=== PATIENT | female | born 1975 | race Caucasian/White ===

== ENCOUNTER 2020-09-15 08:10 | Outpatient (CLI) | payer OTHER, SELFPAY ==
[2020-09-15 08:56] LABS: Hemoglobin A1C 5.6 % (<5.7)
[2020-09-15 09:48] LABS: Alanine Aminotransferase 27 U/L (14-59); Albumin Level 3.7 g/dL (3.4-5.0); Alkaline Phosphatase 61 U/L (46-116); Anion Gap 10 mmol/L (8-16); Aspartate Amino Transferase 12 U/L (15-37); Bilirubin,Total 0.4 mg/dL (0.00-1.00); Blood Urea Nitrogen 10 mg/dL (7-18); Carbon Dioxide 27 mmol/L (21-32); Chloride 104 mmol/L (98-108); Estimated Glomerular Filt Rate > 60; Free T4 Free Thyroxine 0.85 ng/dL (0.76-1.46); Glucose 107 mg/dL (70-99); Osmolality Calculated 291 mOsm/kg (285-295); Potassium 3.8 mmol/L (3.5-5.1); Sodium 141 mmol/L (136-145); Vitamin B12 340 pg/mL (193-986)
[2020-09-15 10:08] LABS: Thyroid Stimulating Hormone 1.48 uIU/mL (0.36-3.74)
[2020-09-18 20:41] LABS: Vitamin D 25 Hydroxy 21 ng/mL (30-100)
== END 2020-09-15 08:11 | disposition home or self-care (01) ==
LOC: CHSLAB 08:13
PROVIDERS: PCP Nurse Practitioner Family; Visit Provider Nurse Practitioner Family
DX: F32.9 Major depressive disorder, single episode, unspecified (principal); F41.9 Anxiety disorder, unspecified; E03.9 Hypothyroidism, unspecified; R73.03 Prediabetes
CPT/HCPCS: 36415; 80053; 82306; 82607; 83036; 84439; 84443

== ENCOUNTER 2021-05-27 16:21 | Outpatient (CLI) | payer OTHER, SELFPAY ==
[2021-05-27 16:31] LABS: Basophils Absolute Auto 0.05 K/mm3 (0.00-0.10); Basophils Percent Auto 0.5 % (0.0-1.0); Eosinophils Absolute Auto 0.29 K/mm3 (0.02-0.50); Hematocrit 44.9 % (35.0-49.0); Hemoglobin 14.3 g/dL (12.0-15.0); Immature Granulocyte Absolute 0.04 K/mm3 (0.00-0.00); Immature Granulocyte Percent A 0.4 % (0.0-0.0); Lymphocytes Absolute Auto 1.98 K/mm3 (1.10-4.50); Lymphocytes Percent Auto 20.4 % (18.0-42.0); Mean Corpuscular HGB Conc 31.8 g/dL (32.0-36.0); Mean Corpuscular Hemoglobin 28.3 pg (27.0-31.0); Mean Corpuscular Volume 88.7 fL (78.0-102.0); Mean Platelet Volume 10.5 fl (9.2-11.8); Monocytes Absolute Auto 0.41 K/mm3 (0.10-0.90); Monocytes Percent Auto 4.2 % (2.0-11.0); Neutrophils Percent Auto 71.5 % (50.0-70.0); Platelet Count Result 294 K/mm3 (150-420); Red Blood Count 5.06 M/mm3 (4.20-5.40); Red Cell Distribution Width 12.6 % (11.6-14.4); White Blood Count 9.7 K/mm3 (4.8-10.8)
[2021-05-27 17:21] LABS: Alanine Aminotransferase 17 U/L (14-59); Albumin Level 4.1 g/dL (3.4-5.0); Alkaline Phosphatase 85 U/L (46-116); Anion Gap 9 mmol/L (8-16); Aspartate Amino Transferase 11 U/L (15-37); Bilirubin,Total 0.2 mg/dL (0.00-1.00); Blood Urea Nitrogen 8 mg/dL (7-18); Calcium 9.2 mg/dL (8.5-10.1); Carbon Dioxide 30 mmol/L (21-32); Chloride 104 mmol/L (98-108); Estimated Glomerular Filt Rate > 60; Free T4 Free Thyroxine 0.71 ng/dL (0.76-1.46); Glucose 98 mg/dL (70-99); Magnesium 2.4 mg/dL (1.8-2.4); Osmolality Calculated 294 mOsm/kg (285-295); Potassium 3.6 mmol/L (3.5-5.1); Sodium 143 mmol/L (136-145); Thyroid Stimulating Hormone 2.15 uIU/mL (0.36-3.74); Total Protein 7.8 g/dL (6.4-8.2)
[2021-05-30 23:51] LABS: Vitamin D 25 Hydroxy 23 ng/mL (30-100)
== END 2021-05-27 16:22 | disposition home or self-care (01) ==
LOC: CHSLAB 16:23
PROVIDERS: PCP Nurse Practitioner Family; Visit Provider Nurse Practitioner Family
DX: R42 Dizziness and giddiness (principal); E03.9 Hypothyroidism, unspecified; E55.9 Vitamin D deficiency, unspecified
CPT/HCPCS: 36415; 80053; 82306; 83735; 84439; 84443; 85025

== ENCOUNTER 2021-09-29 15:56 | Outpatient (CLI) | payer OTHER, SELFPAY ==
[2021-09-29 17:01] LABS: Rheumatoid Factor Screen Negative (Negative)
[2021-09-29 17:36] LABS: Erythrocyte Sedimentation Rate 16 mm/hr (0-15)
[2021-10-01 15:01] LABS: Vitamin D 25 Hydroxy 20 ng/mL (30-100)
== END 2021-09-29 15:57 | disposition home or self-care (01) ==
LOC: CHSLAB 15:58
PROVIDERS: PCP Nurse Practitioner Family; Visit Provider Nurse Practitioner Family
DX: M25.50 Pain in unspecified joint (principal); E55.9 Vitamin D deficiency, unspecified
CPT/HCPCS: 36415; 82306; 85652; 86038; 86039; 86430

== ENCOUNTER 2022-02-24 17:00 | Outpatient (NON) | payer OTHER, SELFPAY ==
[2022-02-24 17:16] LABS: Add Urine Microscopic? YES; Appearance Urine Slightly Cloudy (Clear); Bilirubin Urine Negative (Negative); Blood Urine Negative (Negative); Color Urine Yellow (Yellow); Glucose Urine UA Negative (Negative); Ketones Urine Negative (Negative); Leukocyte Esterase Ur Trace LEU/UL (Negative); Nitrate Urine Negative (Negative); Protein Urine Negative (Negative); Specific Grav Ur >= 1.030 (1.010-1.020); Urobilinogen Urine 0.2 mg/dL (0.2-1.0)
[2022-02-24 17:20] LABS: RBC Urine None seen /hpf (0-2); Squamous Epithelial Cell Urine Few /hpf (Few); WBC Urine 0-3 /hpf (0-3)
[2022-02-24 17:21] LABS: Bacteria Urine 2+ /hpf; Mucus Urine Few /lpf
== END 2022-02-24 17:01 | disposition home or self-care (01) ==
LOC: CHSLAB 17:04
PROVIDERS: Visit Provider Nurse Practitioner Family
DX: R39.9 Unspecified symptoms and signs involving the genitourinary system (principal)
CPT/HCPCS: 81001

== ENCOUNTER 2023-02-03 11:31 | Outpatient (CLI) | payer OTHER, SELFPAY ==
--- NOTE | ~2023-02-03 | XR_ITS ---
XR knee RT min 4V DATE: 02/03/2023 12:36 INDICATION: Right knee pain TECHNIQUE: 4 views including weightbearing AP and PA views COMPARISON: None FINDINGS: No fracture or dislocation or joint effusion. No periosteal reaction or bone destruction, r adiopaque intra-articular loose body or chondrocalcinosis. Joint spaces are relatively preserved. IMPRESSION: Negative Reviewed, dictated and finalized at location A. IMPRESSION: Negative
--- NOTE | ~2023-02-03 | XR_ITS ---
XR knee LT min 4V 02/03/2023 12:36 Indication: Left knee pain. Osteoarthritis. Procedure: 4 views left knee Comparison: No prior studies for comparison. Findings: No fracture, subluxation or dislocation. No significant joint effusion. No foreign bodies. Impression: 1: No acute bone or joint abnormality. Reviewed, dictated and finalized at location L. Impression: 1: No acute bone or joint abnormality.
--- NOTE | ~2023-02-03 | XR_ITS ---
XR lumbar spine min 4V DATE: 02/03/2023 12:36 INDICATION: Low back pain TECHNIQUE: AP, lateral, coned lateral lumbosacral and bilateral oblique views COMPARISON: None FINDINGS: Normal alignment of the lumbar spine. No fracture or bone destruction, spondylolysis or spo ndylolisthesis is evident. The lumbar pedicles are intact. Lumbar and lumbosacral interspaces are well preserved. There is sligh t degenerative spurring at L3-4. The sacroiliac joints are intact. Surgical clips, right upper quadrant, consistent with cholecystectomy. IMPRESSION: Very slight degenerative spurring at L3-4 Reviewed, dictated and finalized at location A.
--- NOTE | ~2023-02-03 | XR_ITS ---
EXAMINATION: HAND-VICKIE ARTHRITIS 3+VIEWS DATE: 02/03/2023 12:36 INDICATION: Unspecified osteoarthritis. Possible lupus. TECHNIQUE: Posteroanterior, lateral, and oblique views of the left and of the right hands as well as a ballcatchers view of both hands were obtained. COMPARISON: None. FINDINGS: Bone alignment is normal at the bilateral hands and wrists. No fracture. Joint spaces appear relative ly preserved throughout the bilateral hands and wrists. No erosions to suggest inflammatory arthritis . Soft tissues are unremarkable. IMPRESSION: 1. Normal bilateral hand radiographs. Reviewed, dictated and finalized at location A.
--- NOTE | ~2023-02-03 | XR_ITS ---
XR foot RT standing 2V DATE: 02/03/2023 12:36 INDICATION: Right foot pain TECHNIQUE: Weightbearing AP and lateral views COMPARISON: None FINDINGS: Mild plantar and posterior calcaneal enthesopathy without associated erosive change or ryder ostitis. No fracture, dislocation, periosteal reaction or bone destruction. IMPRESSION: Mild plantar and posterior calcaneal enthesopathy Reviewed, dictated and finalized at location A.
--- NOTE | ~2023-02-03 | XR_ITS ---
XR hip BI 2V w AP pelvis DATE: 02/03/2023 12:36 INDICATION: Chronic low back pain, hip pain TECHNIQUE: AP pelvis. AP and lateral views of each hip. COMPARISON: None FINDINGS: No pelvic or hip fracture or dislocation. Hip joint spaces are symmetric and well preserved . The pubic symphysis and sacroiliac joints are intact. IMPRESSION: Negative Reviewed, dictated and finalized at location A. IMPRESSION: Negative
--- NOTE | ~2023-02-03 | XR_ITS ---
XR foot LT standing 2V DATE: 02/03/2023 12:37 INDICATION: Left foot pain TECHNIQUE: Weightbearing AP and lateral views COMPARISON: None FINDINGS: No fracture or dislocation, periosteal reaction or bone destruction. No erosive change. IMPRESSION: Negative Reviewed, dictated and finalized at location A. IMPRESSION: Negative
[2023-02-03 12:10] LABS: Hematocrit 42.4 % (35.0-49.0); Hemoglobin 13.8 g/dL (12.0-15.0); Mean Corpuscular HGB Conc 32.5 g/dL (32.0-36.0); Mean Corpuscular Hemoglobin 28.5 pg (27.0-31.0); Mean Corpuscular Volume 87.6 fL (78.0-102.0); Platelet Count Result 259 K/mm3 (150-420); Red Blood Count 4.84 M/mm3 (4.20-5.40); Red Cell Distribution Width 13.1 % (11.6-14.4); White Blood Count 7.9 K/mm3 (4.8-10.8)
[2023-02-03 12:11] LABS: Mean Platelet Volume 10.9 fl (9.2-11.8)
[2023-02-03 12:28] LABS: Alanine Aminotransferase 30 U/L (14-59); Alkaline Phosphatase 81 U/L (46-116); Anion Gap 10 mmol/L (8-16); Aspartate Amino Transferase 14 U/L (15-37); Bilirubin,Total 0.3 mg/dL (0.00-1.00); Blood Urea Nitrogen 7 mg/dL (7-18); Calcium 9.3 mg/dL (8.5-10.1); Carbon Dioxide 29 mmol/L (21-32); Chloride 103 mmol/L (98-108); Creatine Kinase 45 U/L (26-192); Estimated Glomerular Filt Rate > 60; Glucose 144 mg/dL (70-99); Osmolality Calculated 295 mOsm/kg (285-295); Potassium 3.5 mmol/L (3.5-5.1); Sodium 142 mmol/L (136-145); Total Protein 7.7 g/dL (6.4-8.2); Uric Acid 4.5 mg/dL (2.6-6.0)
[2023-02-06 14:35] LABS: Complement C3 214 mg/dL (83-193)
[2023-02-06 20:42] LABS: Anti Cyclic Citrullinated Pept <16 Units (<20)
[2023-02-06 22:22] LABS: Vitamin D 25 Hydroxy 30 ng/mL (30-100)
[2023-02-07 03:31] LABS: SS-A <1.0; SS-B <1.0
[2023-02-07 03:48] LABS: SM Antibody <1.0; SM/RNP Antibody <1.0
[2023-02-07 23:38] LABS: Angiotensin Converting Enzyme 13.7 U/L (9-67)
[2023-02-08 19:11] LABS: Hepatitis B Surface Antibody Nonreactive (Nonreactive); Hepatitis B Surface Antigen Nonreactive (Nonreactive); Hepatitis C Virus Antibody Nonreactive
== END 2023-02-03 11:32 | disposition home or self-care (01) ==
LOC: CHSLAB 11:34
PROVIDERS: PCP Nurse Practitioner Family; Visit Provider Internal Medicine
DX: M06.041 Rheumatoid arthritis without rheumatoid factor, right hand (principal); M06.042 Rheumatoid arthritis without rheumatoid factor, left hand; M19.90 Unspecified osteoarthritis, unspecified site; M46.06 Spinal enthesopathy, lumbar region; M77.31 Calcaneal spur, right foot
CPT/HCPCS: 36415; 72110; 73130; 73521; 73564; 73620; 80053; 82164; 82306; 82550; 84550; 85027; 86160; 86200; 86225; 86235; 86706; 86803; 87340

== ENCOUNTER 2024-08-31 09:38 | Outpatient (CLI) | payer OTHER, SELFPAY ==
--- NOTE | ~2024-08-31 | US_ITS ---
Pelvic ultrasound. Clinical History: Postmenopausal bleeding Technique: Realtime transabdominal and transvaginal scanning of the pelvis was performed. Color flow Doppler and Doppler spectral analysis were performed. Findings: The uterus is anteverted. The endometrial stripe has a thickness of 7 mm. No focal mass is identified. Neither ovary seen. No adnexal mass seen.. There is no evidence of free fluid in the cul de sac. Impression: Minimal/borderline endometrial thickening at 7 mm. Consider endometrial hyperplasia. Very early neopl asm not completely excluded. Gynecologic follow-up advised. Reviewed, dictated and finalized at location . Impression: Minimal/borderline endometrial thickening at 7 mm. Consider endometrial hyperpl carlin. Very early neoplasm not completely excluded. Gynecologic follow-up advise obdulio
--- OUTSIDE RECORDS SUMMARY | 2024-08-31 10:44 | XMS_ITS | Clinical Summary ---
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 [employer] Gender Identity Not on file Sexual Orientation Not on file Plan of Treatment Health Maintenance Due Date Last Done Comments Cervical Cancer Screening Pa p Smear (Age 30 to 64) Every 3 Years 1973 Colorectal Cancer Screening Colonoscopy (10 Years) 1973 Annual Physical 01/15/1976 Hepatitis C 1991 DTaP, Tdap and Td Vaccines ( 1 - Tdap) 01/15/1992 Hepatitis B Vaccines (1 of 3 - 19+ 3-dose series) 01/15/1992 Cervical Cancer Screening Pa p with HPV Testing (Age 30 to 64) Every 5 Years 2003 Cervical Cancer Screening with HPV 2003 Mammogram Screening 2013 Zoster Vaccines (1 of 2) 2023 COVID-19 Vaccine (2023-2 5 season) 2024 Influenza Adult (#1) 2024 Meningococcal B Vaccine Aged Out No l onger eligible based on patient's age to complete this topic Meningococcal Vaccine Aged Out No courtney milly eligible based on patient's age to complete this topic Pneumococcal Vaccine: Pediat rics (0 to 5 Years) and At-Risk Patients (6 to 64 Years) Aged Out No longer eligible b ased on patient's age to complete this topic RSV Immunizations Under 20 Months Aged Out No longer eligible based on patient's age to complete this topic
--- OUTSIDE RECORDS SUMMARY | 2024-08-31 10:44 | XMS_ITS | Clinical Summary ---
Author Organization [facility] [address] Address [address] [place] [address] [address] [id number] Care Team Providers Care Network Security Officer Name Role Phone Unavailable Primary Care Provider Unavailabl e Allergies Active Allergy Reactions Criticality Noted Date Comments Codeine Rash Low 03/26/2023 Penicillins Rash High 03/26/2023 Sulfa (Sulfonamide Antibiotics) Rash Low 03/13 Medications venlafaxine (EFFEXOR XR) 150 mg Extended Release 24 hour capsule Take 150 mg by mouth daily. 03/06/2023 Active naproxen sodium (ALEVE) 220 mg Tablet Take 220 mg by mouth. Active predniSONE (DELTASONE) 10 mg tabletIndication s:Paronychia of finger of left hand Take 5 pills by mouth daily for 2 days, 4 pills daily for 2 days, 3 pills daily for 2 days, 2 pills daily for 2 days, then take 1 pill daily for 2 days. 30 Tablet 03/26/2023 Active Active Problems No known active problems Social History Tobacco Use Types Packs/Day Years Used Date Smoking Tobacco: Never Assessed Comments Unknown Sex and Gender Information Value Date Recorded Sex Assigned at Not on file Legal Sex Female 10:21 AM CDT Gender Identity Not on file Sexual Orientation Not on file Last Filed Vital Signs Vital Sign Reading Time Taken Comments Blood Pressure 118/78 03/26/2023 11:32 AM CDT Pulse 99 03/26/2023 11:32 AM CDT Temperature 36.3 C (97.4 F) 03/26/2023 11:32 AM CDT Respiratory Rate 16 03/26/2023 11:32 AM CDT Oxygen Saturation 100% 03/26/2023 11:32 AM CDT Inhaled Oxygen Concentration - - Weight 78.5 kg (173 lb) 03/26/2023 11:32 AM CDT Height 160 cm (5' 3 ) 03/26/2023 11:32 AM CDT Body Mass Index 30.65 03/26/2023 11:32 AM CDT Plan of Treatment Health Maintenance Due Date Last Done Comments DTAP/TDAP/TD VACCINES (1 - Tdap) 01/15/1992 HEPATITIS B VACCINES (1 of 3 - 19+ 3-dose series) 01/15/1992 PAP SMEAR 2003 BREAST CANCER SCREENING 2013 COLORECTAL SCREENING 2018 Colorectal Cancer Screening 2018 FIT-DNA Q 3 years 2018 FIT/FOBT Q 1 year 2018 Flex Sig/CT Colonography Q 5 years 2018 ZOSTER VACCINE (1 of 2) 2023 INFLUENZA VACCINE (#1) 2024 PNEUMOCOCCAL VACCINE 0-49 YEARS Aged Out No longer eligible based on patient's age to complete this topic Insurance [employer] [facility] [employer] [id number]
== END 2024-08-31 09:39 | disposition home or self-care (01) ==
PROVIDERS: PCP Nurse Practitioner Family; Visit Provider Nurse Practitioner Family
DX: N95.0 Postmenopausal bleeding (principal); R93.89 Abnormal findings on diagnostic imaging of other specified body structures
CPT/HCPCS: 76830; 76856